=== PATIENT | male | born 1995 | race Caucasian/White ===

== ENCOUNTER 2022-07-08 18:22 | Emergency (ER) | payer OTHER, SELFPAY ==
--- NOTE | ~2022-07-08 | XR_ITS ---
XR chest 2V DATE: 07/08/2022 22:39 INDICATION: Chest pain TECHNIQUE: PA and lateral views COMPARISON: None FINDINGS: Normal heart size. No hilar or mediastinal enlargement. No pulmonary infiltrate or consolid ation, pleural effusion or pulmonary vascular congestion or pneumothorax. Mild thoracic dextroscoliosis. IMPRESSION: No active cardiopulmonary disease Reviewed, dictated and finalized at location A.
[2022-07-08 19:32] VITALS: BP 166/88; PULSE 76; RESP 16; TEMP 36.4; O2SAT 97
--- NOTE | 2022-07-08 22:28 | ED.GENADULT ---
HPI - General Adult General Chief complaint: Unspecified Stated complaint: multiple complaints Time Seen by Provider: 07/08/22 22:00 Source: patient Mode of arrival: ambulatory Limitations: no limitations History of Present Illness HPI narrative: This is a 27-year-old male that presents to the emergency department for multiple complaints. Reports over the last couple of days he has been having chest pains and feeling like he is having difficulty breathing. Reports today he feels like he has a lump in his throat. Denies fever, cough, or difficulty swallowing. Related Data Home Medications Medication Instructions Recorded Confirmed No Home Medications 07/08/22 07/08/22 Allergies Allergy/AdvReac Type Severity Reaction Status Date / Time No Known Allergies Allergy Verified 07/08/22 21:57 Review of Systems Review of Systems: CONSTITUTIONAL: Denies fever CARDIOVASCULAR: Reports chest pain. Denies edema. RESPIRATORY: Reports dyspnea. All systems reviewed & are unremarkable except as noted in HPI and below PMFSH Past Medical History Medical History (Updated 07/09/22 @ 00:19 by Rosalie Arvizu PA-C) No active medical problems Social History Social History (Updated 07/08/22 @ 22:29 by Rosalie Arvizu PA-C) Smoking status: Never smoker Alcohol intake: current Substance use: never Exam Narrative: GENERAL: Well-appearing, well-nourished, and in no acute distress. HEAD: Normocephalic, atraumatic. EYES: EOMI. ENT: Nares clear, no rhinorrhea or epistaxis. Mucous membranes moist. Oropharynx without tonsillar hypertrophy exudate or other lesions. Bilateral TMs pearly malagon non-bulging NECK: Supple. No adenopathy or masses. CHEST: Clear to auscultation. No respiratory distress. HEART: Regular rate and rhythm. No murmur heard. Normal peripheral pulses. EXTREMITIES: Normal range of motion. No edema. SKIN: Warm, dry, no rash. NEURO: No focal deficits. Alert and oriented x3. PSYCH: Normal mood and affect Course Vital Signs Vital signs: Vital Signs Temperature 97.5 F L 07/08/22 19:32 Pulse Rate 76 07/08/22 19:32 Respiratory Rate 16 07/08/22 19:32 Blood Pressure 166/88 H 07/08/22 19:32 Pulse Oximetry 97 07/08/22 19:32 Oxygen Delivery Room Air 07/08/22 19:32 Temperature 97.5 F L 07/08/22 19:32 Pulse Rate 59 L 07/08/22 23:18 Respiratory Rate 12 07/08/22 23:18 Blood Pressure 123/76 07/08/22 23:18 Pulse Oximetry 96 07/08/22 23:18 Oxygen Delivery Room Air 07/08/22 19:32 Medical Decision Making MDM Narrative Medical decision making narrative: Patient presents to the ER with multiple complaints ongoing over the last couple of days. Reporting chest pain, feelings of shortness of breath, and reporting a lump in his throat. His vitals are stable. Lungs are clear on exam. Airway is patent. CBC and metabolic panel without concerning findings. Chest x-ray without acute cardiopulmonary abnormality. EKG without concerning changes and baseline troponin is negative. Patient was updated on case findings. He is stable and felt appropriate for further outpatient evaluation. He was given warnings to return to the ER Vital Signs Vital Signs: Vital Signs Temperature 97.5 F L 07/08/22 19:32 Pulse Rate 76 07/08/22 19:32 Respiratory Rate 16 07/08/22 19:32 Blood Pressure 166/88 H 07/08/22 19:32 Pulse Oximetry 97 07/08/22 19:32 Oxygen Delivery Room Air 07/08/22 19:32 Temperature 97.5 F L 07/08/22 19:32 Pulse Rate 59 L 07/08/22 23:18 Respiratory Rate 12 07/08/22 23:18 Blood Pressure 123/76 07/08/22 23:18 Pulse Oximetry 96 07/08/22 23:18 Oxygen Delivery Room Air 07/08/22 19:32 Lab Data Lab results reviewed: Yes I reviewed the patient's lab results. Result diagrams: 07/08/22 22:47 07/08/22 22:47 Labs: Lab Results 07/08/22 07/08/22 07/08/22 Range/Units 22:47 22:47 22:47 WBC 7.7 (4.5-10.0) K/mm3 RBC
--- NOTE | 2022-07-08 22:49 | PC.NURSE ---
Assumed care of pt
--- NOTE | 2022-07-08 22:56 | ECG_ITS ---
Measurements Intervals [place] Rate: 51 P: 49 [place]: 140 QRS: 58 QRSD: 100 T: 50 QT: 372 QTc: 343 Interpretive Statements SINUS BRADYCARDIA NO PREVIOUS ECG AVAILABLE FOR COMPARISON Electronically Signed On 07-09-2022 16:05:36 CDT by Evert Patel M.D.
[2022-07-08 22:57] LABS: Basophils Percent Auto 0.3 % (0.2-1.2); Eosinophils Absolute Auto 0.3 K/mm3 (0-0.3); Eosinophils Percent Auto 4.2 % (0-4.4); Hematocrit 42.4 % (42.0-52.0); Hemoglobin 14.6 g/dL (14.0-18.0); Immature Granulocyte Absolute 0.02 K/mm3 (0.00-0.031); Immature Granulocyte Percent A 0.3 % (0-0.5); Lymphocytes Absolute Auto 2.23 K/mm3 (0.9-3.2); Lymphocytes Percent Auto 29.2 % (18.3-44.2); Mean Corpuscular HGB Conc 34.4 g/dl (32-36); Mean Corpuscular Hemoglobin 28.5 pg (26-34); Mean Corpuscular Volume 82.8 fl (80-100); Mean Platelet Volume 9.2 fl (7.4-10.4); Monocytes Absolute Auto 0.6 K/mm3 (0.1-0.6); Monocytes Percent Auto 8.2 % (2.6-8.5); Neutrophils Absolute Auto 4.4 K/mm3 (1.3-6.7); Neutrophils Percent Auto 57.8 % (45.5-73.1); Platelet Count Result 257 k/mm3 (150-375); Red Blood Count 5.12 M/mm3 (4.6-6.20); Red Cell Distribution Width 12.9 % (11.5-14.5); White Blood Count 7.7 K/mm3 (4.5-10.0)
[2022-07-08 23:09] LABS: INR 1.1; Prothrombin Time 13.3 Seconds (11.1-14.7)
[2022-07-08 23:10] LABS: Partial Thromboplastin Time 28.3 SECONDS (22.3-36.8)
[2022-07-08 23:11] LABS: Alanine Aminotransferase 70 U/L (6-50); Albumin Level 4.5 g/dL (3.5-5.1); Alkaline Phosphatase 78 U/L (38-126); Anion Gap 10 mmol/L (8-16); Aspartate Amino Transferase 38 U/L (17-59); Bilirubin,Total 0.4 mg/dL (0.2-1.3); Blood Urea Nitrogen 12 mg/dL (9-20); Calcium 8.8 mg/dL (8.4-10.2); Carbon Dioxide 25 mmol/L (22-30); Chloride 104 mmol/L (98-107); Estimated CRCL calculation 118 ml/min; Estimated Glomerular Filt Rate > 60; Glucose 95 mg/dL (65-110); Potassium 3.9 mmol/L (3.4-5.0); Sodium 139 mmol/L (137-145)
[2022-07-08 23:18] VITALS: BP 123/76; PULSE 59; RESP 12; O2SAT 96
[2022-07-08 23:22] LABS: Troponin I < 0.012 ng/mL (0.000-0.034)
[2022-07-09 00:30] VITALS: BP 121/74; PULSE 54; RESP 15; O2SAT 98
== END 2022-07-09 00:31 | disposition home or self-care (01) ==
PROVIDERS: Physician Assistant; Emergency Provider Emergency Medicine
DX: R09.89 Other specified symptoms and signs involving the circulatory and respiratory systems (principal); R00.1 Bradycardia, unspecified
CPT/HCPCS: 36415; 71046; 80053; 84484; 85025; 85610; 85730; 93005; 99284

== ENCOUNTER 2022-12-13 16:56 | Emergency (ER) | payer OTHER, SELFPAY ==
--- NOTE | 2022-12-13 16:59 | ED.DENTAL ---
HPI - Dental/Oral General Chief complaint: Dental/Oral Stated complaint: toothache Time Seen by Provider: 12/13/22 16:58 Source: patient Mode of arrival: ambulatory Limitations: no limitations History of Present Illness HPI Narrative: Mr. Darling is a 27-year-old male patient presenting to the clinic today with complaints of left-sided upper and lower dental pain x2 weeks. He reports that he has had this pain off and on for years however over the 2 weeks that has gotten worse. He has made appointment with his dentist but he is not able to be seen until January 09. He denies any fever or chills. Related Data Home Medications Medication Instructions Recorded Confirmed bupropion HCl 150 mg 24 hr tablet, 150 mg PO DAILY 12/13/22 12/13/22 extended release Allergies Allergy/AdvReac Type Severity Reaction Status Date / Time No Known Allergies Allergy Verified 12/13/22 17:11 Review of Systems Review of Systems: Pertinent positives per HPI. Patient denies any fever, chills, rash, headache, visual changes, dizziness, cough, runny nose, sore throat, shortness of breath, chest pain, palpitations, nausea, vomiting, diarrhea, constipation, abdominal pain, or any urinary issues. [facility] Past Medical History Medical History No active medical problems Social History Social History Smoking status: Never smoker Alcohol intake: current Substance use: never Comments At the time of my signature, I reviewed and agree with the nursing past medical, surgical, social, and family history. There is no relevant family history pertinent to the patient complaint. Exam Narrative: General: Well-developed, well nourished, in no apparent distress Head: Normocephalic, atraumatic Eyes: Pupils equally round and reactive to light bilaterally, EOM intact, sclera and conjunctive clear, no discharge, lids normal Ears: TMs intact and clear, ear canals clear, no drainage, grossly hearing normal. Nose: Nares patent, no discharge, no inflammation, no sinus tenderness. Mouth: Oropharynx without lesions or masses, poor dentition, MMM. Tenderness to palpation to the posterior left upper and lower molars with redness and swelling of the gingiva Neck: Supple, trachea midline, no enlargement of anterior or posterior cervical nodes, no thyroid masses or goiter palpable. Cardio: Regular rate and rhythm, s1 and s2 normal, no murmur appreciated. Resp: Clear to auscultation bilaterally anteriorly and posteriorly, no rhonchi, rales, wheezing or rubs Course Course Emergency Course: Portions of this record may have been created with voice recognition software. Level of Care: Express Care Visit Vital Signs Vital signs: Vital Signs Temperature 36.3 C L 12/13/22 17:07 Pulse Rate 90 12/13/22 17:07 Respiratory Rate 20 12/13/22 17:07 Blood Pressure 136/85 12/13/22 17:07 Pulse Oximetry 99 12/13/22 17:07 Oxygen Delivery Room Air 12/13/22 17:07 Temperature 36.3 C L 12/13/22 17:07 Pulse Rate 90 12/13/22 17:07 Respiratory Rate 20 12/13/22 17:07 Blood Pressure 136/85 12/13/22 17:07 Pulse Oximetry 99 12/13/22 17:07 Oxygen Delivery Room Air 12/13/22 17:07 Vital signs reviewed MDM - Dental/Oral MDM Narrative Medical decision making narrative: At the time of visit patient is resting comfortably on exam table. I suspect the patient has a dental infection. Will send a prescription for amoxicillin 875 twice daily times 10 days. Supportive measures were discussed with the patient he voiced understanding discharge instructions and agrees to treatment plan Differential Diagnosis Differential diagnosis: Likely gingival abscess, dental caries, toothache and dental abscess Discharge Plan Discharge Clinical Impression: Dental infection Patient Disposition: Home, Self-Care Condition: Stab
[2022-12-13 17:07] VITALS: BP 136/85; PULSE 90; RESP 20; TEMP 36.3; O2SAT 99
== END 2022-12-13 17:15 | disposition home or self-care (01) ==
PROVIDERS: Emergency Provider Nurse Practitioner Family; PCP Physician Assistant
DX: K04.7 Periapical abscess without sinus (principal)
CPT/HCPCS: 99213; G0463

== ENCOUNTER 2023-07-16 18:38 | Emergency (ER) | payer OTHER, SELFPAY ==
--- NOTE | ~2023-07-16 | XR_ITS ---
EXAMINATION: XR chest 2V Exam Date/Time: 07/16/2023 19:00 CDT HISTORY: left MID/LATERAL rib pain X 1 MONTH Comparison: 07/08/2022. RESULT: Lines, tubes, and devices: None. Lungs and pleura: Clear. Cardiomediastinal silhouette: Stable. Other: No acute osseous or upper abdominal finding. IMPRESSION: No acute cardiopulmonary process. Reviewed, dictated and finalized at location K.
[2023-07-16 18:49] VITALS: BP 130/83; PULSE 75; RESP 17; TEMP 36.6; O2SAT 99
--- NOTE | 2023-07-16 18:51 | ECG_ITS ---
Measurements Intervals [place] Rate: 75 P: 63 [place]: 153 QRS: 66 QRSD: 98 T: 54 QT: 342 QTc: 383 Interpretive Statements SINUS RHYTHM WITH SINUS ARRHYTHMIA NORMAL ECG COMPARED TO ECG 07/08/2022 22:42:06 SINUS RHYTHM NOW PRESENT SINUS ARRHYTHMIA NOW PRESENT Electronically Signed On 07-16-2023 19:17:57 CDT by Amadou Taylor D.O.
--- NOTE | 2023-07-16 20:19 | ED.GENADULT ---
HPI - General Adult General Chief complaint: Unspecified Stated complaint: L RIB PAIN Time Seen by Provider: 07/16/23 19:54 History of Present Illness HPI narrative: Patient is a 28-year-old male presenting with left-sided rib pain. Patient states that several weeks ago he fell and his elbow went straight into his ribs. States that he had pain at that time which has been coming and going. States that the pain has been worse over the last several days so he wanted to get checked out. States that he has been taking ibuprofen intermittently which does improve the pain. 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 No shortness of breath, palpitations, leg swelling. No prior blood clots. No further complaints. Related Data Home Medications Medication Instructions Recorded Confirmed bupropion HCl 150 mg 24 hr tablet, 150 mg PO DAILY 12/13/22 12/13/22 extended release Allergies Allergy/AdvReac Type Severity Reaction Status Date / Time No Known Allergies Allergy Verified 12/13/22 17:11 Review of Systems Review of Systems: All systems reviewed & are unremarkable except as noted in HPI and below PMFSH Past Medical History Medical History No active medical problems Social History Social History Smoking status: Never smoker Alcohol intake: current Substance use: never Exam Narrative: GENERAL: Well-appearing, well-nourished, and in no acute distress. HEAD: Normocephalic, atraumatic. EYES: PERRLA and EOMI. ENT: Mucous membranes moist. NECK: Supple. CHEST: Clear to auscultation. No respiratory distress. tenderness over left lower ribs HEART: Regular rate and rhythm ABDOMEN: Soft, nontender, nondistended EXTREMITIES: No edema. SKIN: Warm, dry, no rash. NEURO: Alert and oriented x3. PSYCH: Normal mood and affect. Course Vital Signs Vital signs: Vital Signs Temperature 97.8 F 07/16/23 18:49 Pulse Rate 75 07/16/23 18:49 Respiratory Rate 17 07/16/23 18:49 Blood Pressure 130/83 07/16/23 18:49 Pulse Oximetry 99 07/16/23 18:49 Oxygen Delivery Room Air 07/16/23 18:49 Temperature 97.8 F 07/16/23 18:49 Pulse Rate 75 07/16/23 18:49 Respiratory Rate 17 07/16/23 18:49 Blood Pressure 130/83 07/16/23 18:49 Pulse Oximetry 99 07/16/23 18:49 Oxygen Delivery Room Air 07/16/23 18:49 Medical Decision Making MDM Narrative Medical decision making narrative: 28-year-old male presenting with left-sided rib pain after a fall several weeks ago. Vitals are stable. Exam remarkable for the above. PERC negative. No abdominal tenderness. EKG per my interpretation shows normal sinus rhythm with a sinus arrhythmia, no acute ischemic changes. Chest x-ray without acute abnormalities. No rib fractures. Feel the patient is safe for outpatient management, advised that he continue using ibuprofen and Tylenol for pain. Advised that he follow-up closely with primary care. Appropriate return precautions given. Discharged in stable condition. Differential Diagnosis Differential Diagnosis: Rib fractures, musculoskeletal pain, ecchymoses Medical Records Medical records reviewed: Yes I reviewed the external patient's medical records. Vital Signs Vital Signs: Vital Signs Temperature 97.8 F 07/16/23 18:49 Pulse Rate 75 07/16/23 18:49 Respiratory Rate 17 07/16/23 18:49 Blood Pressure 130/83 07/16/23 18:49 Pulse Oximetry 99 07/16/23 18:49 Oxygen Delivery Room Air 07/16/23 18:49 Temperature 97.8 F 07/16/23 18:49 Pulse Rate 75 07/16/23 18:49 Respiratory Rate 17 07/16/23 18:49 Blood Pressure 130/83 07/16/23 18:49 Pulse Oximetry 99 07/16/23 18:49 Oxygen Delivery Room Air 07/16/23 18:49 Imaging Data Radiologist's impression: ITS Impressions Chest X-Ray
== END 2023-07-16 20:43 | disposition home or self-care (01) ==
PROVIDERS: Emergency Provider Emergency Medicine
DX: R07.81 Pleurodynia (principal); W19.XXXA Unspecified fall, initial encounter
CPT/HCPCS: 71046; 93005; 99283

== ENCOUNTER 2023-08-13 17:49 | Emergency (ER) | payer OTHER, SELFPAY ==
[2023-08-13 18:00] VITALS: BP 147/76; PULSE 77; RESP 16; TEMP 36.5; O2SAT 98
--- NOTE | 2023-08-13 18:17 | ED.URI ---
HPI - URI/Sore Throat General Chief Complaint: Nausea/Vomiting/Diarrhea Stated Complaint: nausea Time Seen by Provider: 08/13/23 17:51 Source: patient Mode of arrival: ambulatory Limitations: no limitations History of Present Illness HPI Narrative: Patient is a 28-year-old male that presents with nausea, dizziness, decreased appetite since yesterday. Patient states yesterday he also had light sensitivity and migraines that he has frequently. Patient states he has not brought up daily headaches with PCP. States he has not taken anything for symptoms. Denies any change in vision. Denies any vomiting, abdominal pain or diarrhea. Does report mild congestion and drainage. Also reports feeling fever rash even though he is working outside and is very cold. Related Data Home Medications Medication Instructions Recorded Confirmed No Home Medications 08/13/23 08/13/23 Allergies Allergy/AdvReac Type Severity Reaction Status Date / Time No Known Allergies Allergy Verified 08/13/23 18:55 Review of Systems Review of Systems: All systems reviewed & are unremarkable except as noted in HPI and below Constitutional: Constitutional: Denies body ache(s), Denies chills, Denies fatigue, Reports fever(s), Reports headache(s), Denies malaise and Denies weakness Eyes: Eyes: Denies blurry vision, Denies itchy eyes and Denies loss of vision ENT: Denies otalgia, Denies headache(s), Reports nasal congestion, Denies sinus pain and Denies sore throat Cardiovascular: Cardiovascular: Denies chest pain, Denies irregular heart rhythm and Denies dyspnea Respiratory: Respiratory: Denies cough and Denies dyspnea Gastrointestinal: Gastrointestinal: Denies abdominal pain, Denies diarrhea, Denies nausea and Denies vomiting Musculoskeletal: Musculoskeletal: Denies back pain, Denies myalgias and Denies arthralgias Integumentary/Breasts: Skin/Breast: Denies pruritus and Denies rash Neurologic: Reports dizziness, Denies headache(s), Denies loss of vision and Denies weakness Psychiatric: Psychiatric: Reports no additional psychiatric complaints Endocrine: Endocrine: Denies fatigue Allergic/Immunologic: Allergic/Immunologic: Denies itchy eyes PMFSH Past Medical History Medical History No active medical problems Social History Social History Smoking status: Never smoker Alcohol intake: current Substance use: never Comments At time of signature, agree with nursing past medical, surgical, social and family history. There is no relevant family history pertinent to the presenting complaint. Exam Const: General: cooperative, healthy appearing, comfortable, no acute distress and well nourished Nutritional Appearance: well nourished Orientation/consciousness: patient oriented x3 Limitations: no limitations HENMT: Head: normal to inspection, normocephalic and atraumatic Ears: hearing grossly normal bilaterally, external ears normal, TM's normal bilaterally, EAC's normal and no periauricular adenopathy Face/Nose/Sinus: Normal external nose present, Abnormal mucous membranes and turbinates present erythematous bilateral and diffuse, normal facial exam, sinuses nontender and face symmetric Face and sinus: normal facial exam, sinuses nontender and face symmetric Mouth: Yes Normal oral and palatal mucosa present, Yes lip normal, Yes tongue normal, Yes Normal salivary glands and ducts present, Yes oropharynx normal and Yes moist mucous membranes Teeth and gingiva: dentition normal Throat: posterior oropharynx normal, tonsils normal and uvula midline Eyes: General: appearance normal, both eyes and all related structures Alignment and Position: alignment normal and position normal Periorbital: periorbital findings normal Eyelids: eyelids normal Pupils: Equal, round and reactive pupils present Neck: Neck: normal visual inspection, fu
== END 2023-08-13 18:38 | disposition short-term general hospital (02) ==
PROVIDERS: Emergency Provider Nurse Practitioner Family; PCP Nurse Practitioner Family
DX: R42 Dizziness and giddiness (principal); R29.90 Unspecified symptoms and signs involving the nervous system; Z20.822 Contact with and (suspected) exposure to COVID-19
CPT/HCPCS: 87081; 87426; 87804; 87880; 99213; C9803; G0463

== ENCOUNTER 2023-08-13 18:49 | Emergency (ER) | payer OTHER, SELFPAY ==
--- NOTE | ~2023-08-13 | CT_ITS ---
EXAMINATION: CT brain wo con DATE: 08/13/2023 23:22 INDICATION: headache . TECHNIQUE: Computed tomography (CT) of the head was performed without intravenous contrast. The mA wa s adjusted according to patient size. Iterative reconstruction technique was employed. The dose-lengt h product was 605.33 mGy-cm. COMPARISON: None. FINDINGS: No acute intracranial hemorrhage or extra-axial fluid collection. No hydrocephalus, mass, or herniation. No acute ischemic infarct. Unremarkable dural venous sinus attenuation. No acute osseous abnormality. The aerated spaces are clear. IMPRESSION: No acute intracranial process. Reviewed, dictated and finalized at location K. OCHEMIST
[2023-08-13 18:51] VITALS: BP 154/96; PULSE 68; RESP 17; TEMP 36.5; O2SAT 99
[2023-08-13] MEDS: KETOROLAC 30 MG/ML VIAL (*BKC) IV PUSH (23:35)
[2023-08-13] MEDS: diphenhydrAMINE HCl INJ 50 MG/ML VIAL IV PUSH (23:35)
[2023-08-13] MEDS: PROCHLORPERAZINE EDISYLATE 10 MG/2 ML VIAL IV PUSH (23:35)
[2023-08-13] MEDS: SODIUM CHLORIDE 0.9% IV 1,000 ML 999 ML IV CONT (23:36)
[2023-08-13 23:38] LABS: Basophils Percent Auto 0.3 % (0.2-1.2); Eosinophils Absolute Auto 0.5 K/mm3 (0-0.3); Eosinophils Percent Auto 5.8 % (0-4.4); Hematocrit 43.9 % (42.0-52.0); Hemoglobin 14.6 g/dL (14.0-18.0); Immature Granulocyte Absolute 0.02 K/mm3 (0.00-0.031); Immature Granulocyte Percent A 0.2 % (0-0.5); Mean Corpuscular HGB Conc 33.3 g/dl (32-36); Mean Corpuscular Hemoglobin 27.5 pg (26-34); Mean Corpuscular Volume 82.7 fl (80-100); Mean Platelet Volume 8.8 fl (7.4-10.4); Monocytes Absolute Auto 0.7 K/mm3 (0.1-0.6); Monocytes Percent Auto 7.8 % (2.6-8.5); Neutrophils Absolute Auto 5.4 K/mm3 (1.3-6.7); Neutrophils Percent Auto 57.9 % (45.5-73.1); Platelet Count Result 268 k/mm3 (150-375); Red Blood Count 5.31 M/mm3 (4.6-6.20); Red Cell Distribution Width 13.1 % (11.5-14.5); White Blood Count 9.3 K/mm3 (4.5-10.0)
[2023-08-13 23:49] LABS: Alanine Aminotransferase 65 U/L (6-50); Albumin Level 4.4 g/dL (3.5-5.1); Alkaline Phosphatase 88 U/L (38-126); Anion Gap 9 mmol/L (8-16); Aspartate Amino Transferase 41 U/L (17-59); Bilirubin,Total 0.8 mg/dL (0.2-1.3); Blood Urea Nitrogen 10 mg/dL (9-20); Carbon Dioxide 27 mmol/L (22-30); Chloride 104 mmol/L (98-107); Estimated CRCL calculation 131 ml/min; Estimated Glomerular Filt Rate > 60; Glucose 92 mg/dL (65-110); Potassium 3.9 mmol/L (3.4-5.0); Sodium 140 mmol/L (137-145)
[2023-08-14 00:14] LABS: Influenza A QL RT-PCR Negative (Negative); Influenza B QL RT-PCR Negative (Negative); RSV RNA, RT-PCR Negative (Negative); SARS-CoV-2 RNA PCR Negative (Negative)
--- NOTE | 2023-08-14 00:31 | ED.GENADULT ---
HPI - General Adult General Chief complaint: Headache Stated complaint: Headache Time Seen by Provider: 08/13/23 22:58 History of Present Illness HPI narrative: patient is a 28-year-old gentleman who presents emergency department with chief complaint of headache patient states that for last several years has been having intermittent headaches and reports that he gets photophobia and feels as though the room is spinning when these episodes happen. The patient states having a little more frequent he reports the last several days the pain worse. The patient reports no trauma reports that he has no focal weakness and denies confusion. Related Data Home Medications Medication Instructions Recorded Confirmed No Home Medications 08/13/23 08/13/23 Allergies Allergy/AdvReac Type Severity Reaction Status Date / Time No Known Allergies Allergy Verified 08/13/23 18:55 Review of Systems Review of Systems: A 10 system review of systems was completed on the patient and is negative except for what is stated in the HPI. Nursing and ancillary documentation was reviewed. PMFSH Past Medical History Medical History No active medical problems Social History Social History Smoking status: Never smoker Alcohol intake: current Substance use: never Exam Narrative: GENERAL: Well-appearing, well-nourished, and in no acute distress. HEAD: Normocephalic, atraumatic. EYES: PERRLA and EOMI. ENT: Nares clear, no rhinorrhea or epistaxis. Mucous membranes moist. NECK: Supple. CHEST: Clear to auscultation. No respiratory distress. HEART: Regular rate and rhythm. No murmur heard. Normal peripheral pulses. ABDOMEN: Soft, nontender, nondistended, normal active bowel sounds. EXTREMITIES: Normal range of motion. No edema. SKIN: Warm, dry, no rash. NEURO: No focal deficits. Alert and oriented x3. PSYCH: Normal mood and affect. Course Vital Signs Vital signs: Vital Signs Temperature 36.5 C 08/13/23 18:51 Pulse Rate 68 08/13/23 18:51 Respiratory Rate 17 08/13/23 18:51 Blood Pressure 154/96 H 08/13/23 18:51 Pulse Oximetry 99 08/13/23 18:51 Oxygen Delivery Room Air 08/13/23 18:51 Temperature 36.5 C 08/13/23 18:51 Pulse Rate 68 08/13/23 18:51 Respiratory Rate 17 08/13/23 18:51 Blood Pressure 154/96 H 08/13/23 18:51 Pulse Oximetry 99 08/13/23 18:51 Oxygen Delivery Room Air 08/13/23 18:51 Medical Decision Making MDM Narrative Medical decision making narrative: Septal diagnosis includes intracranial hemorrhage, intracranial mass, migraine, tension headache, electrolyte abnormality, viral syndrome patient was negative for COVID CT head showed no acute abnormalities patient was treated with a classic migraine cocktail and is feeling much better at this time would like to go home. Given the patient has no focal neurological deficits and shows no signs of altered mental status patient will be discharged home to follow-up with his primary care provider Vital Signs Vital Signs: Vital Signs Temperature 36.5 C 08/13/23 18:51 Pulse Rate 68 08/13/23 18:51 Respiratory Rate 17 08/13/23 18:51 Blood Pressure 154/96 H 08/13/23 18:51 Pulse Oximetry 99 08/13/23 18:51 Oxygen Delivery Room Air 08/13/23 18:51 Temperature 36.5 C 08/13/23 18:51 Pulse Rate 68 08/13/23 18:51 Respiratory Rate 17 08/13/23 18:51 Blood Pressure 154/96 H 08/13/23 18:51 Pulse Oximetry 99 08/13/23 18:51 Oxygen Delivery Room Air 08/13/23 18:51 Lab Data 08/13/23 23:33 08/13/23 23:33 Labs: Lab Results 08/13/23 Range/Units 23:33 WBC 9.3 (4.5-10.0) K/mm3 RBC 5.31 (4.6-6.20) M/mm3 Hgb 14.6 (14.0-18.0) g/dL Hct 43.9 (42.0-52.0) % MCV 82.7 (80-100) fl MCH 27.5 (26-34) pg MCHC 33
[2023-08-14 00:51] VITALS: BP 136/77; PULSE 86; RESP 15; O2SAT 99
== END 2023-08-14 00:52 | disposition home or self-care (01) ==
PROVIDERS: Emergency Provider Emergency Medicine; PCP Nurse Practitioner Family
DX: R51.9 Headache, unspecified (principal); Z20.822 Contact with and (suspected) exposure to COVID-19
CPT/HCPCS: 36415; 70450; 80053; 85025; 87081; 87426; 87637; 87804; 87880; 96361; 96374; 96375; 99284; C9803; J0780; J1200; J1885; J7030

== ENCOUNTER 2024-05-17 13:53 | Emergency (ER) | payer OTHER, SELFPAY ==
[2024-05-17 14:04] VITALS: BP 116/57; PULSE 92; RESP 18; TEMP 38.3; O2SAT 100
--- NOTE | 2024-05-17 14:10 | ED.URI ---
HPI - URI/Sore Throat General Chief Complaint: Upper Respiratory Infection Stated Complaint: Fever/ Body Ache Source: patient and RN notes reviewed Mode of arrival: ambulatory Limitations: no limitations History of Present Illness HPI Narrative: 29-year-old male presented for complaint of sore throat, headache, body aches, mild nasal drainage cough, fever/chills. Onset 9:00 p.m. yesterday. Tested negative for COVID an hour and a half after symptom onset. Denies sob, wheezing, n/v/d. Family has had similar symptoms. Took Tylenol Cold and Sinus med. elicited complaint: cough Related Data Home Medications Medication Instructions Recorded Confirmed No Home Medications 08/13/23 05/17/24 Allergies Allergy/AdvReac Type Severity Reaction Status Date / Time No Known Allergies Allergy Verified 05/17/24 14:01 Review of Systems Review of Systems: CONSTITUTIONAL: Endorses malaise, chills, sweats, fever EYES: Denies visual changes, redness, or discharge ENT: Reports rhinorrhea, congestion, sore throat CARDIOVASCULAR: Denies chest pain, palpitations, edema RESPIRATORY: Reports cough, Denies dyspnea GASTROINTESTINAL: reports nausea Denies abdominal pain, vomiting, diarrhea SKIN: Denies rash or itching MUSCULOSKELETAL: Endorses myalgia PMFSH Past Medical History Medical History No active medical problems Social History Social History Smoking status: Never smoker Alcohol intake: current Substance use: never Exam Narrative: GENERAL: Mildly Ill-appearing, nontoxic no acute distress. EYES: PERRLA, conjunctivae clear ENT: Mucous membranes moist. TM pearly malagon with dull light reflex bilaterally; no tragal tenderness. Oropharynx mildly erythematous without lesions or exudate, no drooling, no hoarseness, no trismus, uvula midline. NECK: Supple. No lymphadenopathy CHEST: Clear to auscultation, breath sounds equal. No wheezing, rhonchi, rales, or stridor. No respiratory distress, speaks in full sentences. HEART: Regular rate and rhythm. No murmur heard. SKIN: Warm, dry, no rash. NEURO: Alert and oriented x3. PSYCH: Normal mood and affect Course Course Emergency Course: Patient is aware of diagnosis, understands and agrees to treatment plan. Anticipatory guidance given. Patient agrees to follow-up as directed and is aware of reasons to seek care at the emergency department. Portions of this record may have been created with voice recognition software Level of Care: Express Care Visit Vital Signs Vital signs: Vital Signs Temperature 101 F H 05/17/24 14:04 Pulse Rate 92 05/17/24 14:04 Respiratory Rate 18 05/17/24 14:04 Blood Pressure 116/57 L 05/17/24 14:04 Pulse Oximetry 100 05/17/24 14:04 Oxygen Delivery Room Air 05/17/24 14:04 Temperature 101 F H 05/17/24 14:04 Pulse Rate 92 05/17/24 14:04 Respiratory Rate 18 05/17/24 14:04 Blood Pressure 116/57 L 05/17/24 14:04 Pulse Oximetry 100 05/17/24 14:04 Oxygen Delivery Room Air 05/17/24 14:04 reviewed MDM - URI/Sore Throat MDM Narrative Medical decision making narrative: Positive influenza. Declined Tamiflu. Discussed physical exam findings. Advised supportive measures and signs/symptoms to go to the ER. Pt is appropriate for outpt treatment and f/u. Differential Diagnosis Differential diagnosis: Likely upper respiratory infection, sinusitis and viral infection Discharge Plan Discharge Clinical Impression: Influenza Patient Disposition: Home, Self-Care Condition: Stable Instructions: Influenza (ED) Additional Instructions: Influenza positive You should avoid crowds until you are fever free for 24 hours without the use of fever reducing medications, or the symptoms are improved Rest. Drink plenty of fluids. Tylenol and ibuprofen every 8 hours as needed for pain/fever Recommen
[2024-05-17 14:22] LABS: EDINFLUASCREEN Positive; EDINFLUBSCREEN Negative
== END 2024-05-17 14:24 | disposition home or self-care (01) ==
PROVIDERS: Emergency Provider Nurse Practitioner Family; PCP Physician Assistant
DX: J10.1 Influenza due to other identified influenza virus with other respiratory manifestations (principal); Z20.822 Contact with and (suspected) exposure to COVID-19
CPT/HCPCS: 87426; 87804; 99213; G0463

== ENCOUNTER 2024-05-20 23:34 | Emergency (ER) | payer OTHER, SELFPAY ==
--- NOTE | ~2024-05-20 | CT_ITS ---
Non-contrast Head CT History: Mental status change COMPARISON: 2923 Technique: Axial non-contrast imaging of the brain was performed. Dose reduction technique was used on this scan by utilizing automated exposure control and iterative reconstruction technique. The dose -length product (DLP) was 605.33 mGy-cm. Findings: There is no evidence of intracranial hemorrhage, mass lesion, or acute infarct. Brain par enchyma appears normal. The ventricles and subarachnoid spaces are normal in size. The calvarium ap pears normal. The visualized paranasal sinuses and mastoid air cells are clear. Impression: No significant abnormality seen. Reviewed, dictated and finalized at location . Impression: No significant abnormality seen.
--- NOTE | ~2024-05-20 | XR_ITS ---
Portable chest x-ray Comparison: 07/16/2023 Clinical History: Seizure Findings: Lungs are clear, without focal consolidation or pleural effusion. Cardiomediastinal silho uette is stable. Bones and soft tissues are unremarkable. Impression: Normal chest. Reviewed, dictated and finalized at location . Impression: Normal chest.
--- NOTE | ~2024-05-20 | CT_ITS ---
CT Facial Bones and Cervical Spine Clinical Indication: Seizure, status post fall Technique: Contiguous axial scans were obtained through the facial bones and cervical spine followed by coronal and sagittal reconstructions. Dose reduction technique was used on this scan by utilizing automated exposure control and iterative reconstruction technique. The dose-length product (DLP) was 455.80 mGy-cm. Findings: CT facial bones: No fractures are identified. The visualized paranasal sinuses are clear. Intraorbita l soft tissues appear normal. CT cervical spine: No fractures or subluxation. Unremarkable visualized bony structures. The interv ertebral disc spaces are preserved. No prevertebral soft tissue swelling. Impression: No fracture is seen in the facial bones. No fracture or subluxation of the cervical spine. Reviewed, dictated and finalized at location . Impression: No fracture is seen in the facial bones. No fracture or subluxation of the cervical spine.
--- NOTE | 2024-05-20 23:39 | ECG_ITS ---
Test Date: 2024-05-20 23:42:39 Measurements Intervals [place] Rate: 63 P: 50 RI: 163 QRS: 59 QRSD: 98 T: 38 QT: 378 QTc: 388 Interpretive Statements SINUS RHYTHM POSSIBLE LEFT ATRIAL ENLARGEMENT INCOMPLETE RIGHT BUNDLE BRANCH BLOCK BORDERLINE ECG No previous ECG available for comparison Electronically Signed On 05-21-2024 06:42:55 CDT by Amadou Taylor D.O.
[2024-05-20 23:42] VITALS: BP 114/77; PULSE 68; RESP 18; TEMP 37.1; O2SAT 97
[2024-05-20 23:45] VITALS: O2SAT 99
[2024-05-20 23:53] VITALS: PULSE 71
[2024-05-20 23:54] VITALS: BP 114/77; PULSE 70; RESP 12; TEMP 37.1; O2SAT 99
[2024-05-20 23:54] LABS: Basophils Percent Auto 0.9 % (0.2-1.2); Eosinophils Percent Auto 1.4 % (0-4.4); Hematocrit 39.2 % (42.0-52.0); Hemoglobin 13.2 g/dL (14.0-18.0); Immature Granulocyte Absolute 0.01 K/mm3 (0.00-0.031); Immature Granulocyte Percent A 0.5 % (0-0.5); Lymphocytes Absolute Auto 0.76 K/mm3 (0.9-3.2); Lymphocytes Percent Auto 35.5 % (18.3-44.2); Mean Corpuscular HGB Conc 33.7 g/dl (32-36); Mean Corpuscular Hemoglobin 27.8 pg (26-34); Mean Corpuscular Volume 82.7 fl (80-100); Monocytes Absolute Auto 0.3 K/mm3 (0.1-0.6); Neutrophils Percent Auto 46.7 % (45.5-73.1); Platelet Count Result 144 k/mm3 (150-375); Red Blood Count 4.74 M/mm3 (4.6-6.20); Red Cell Distribution Width 12.9 % (11.5-14.5); White Blood Count 2.1 K/mm3 (4.5-10.0)
[2024-05-21 00:04] LABS: Alanine Aminotransferase 70 U/L (6-50); Albumin Level 3.8 g/dL (3.5-5.1); Alkaline Phosphatase 71 U/L (38-126); Anion Gap 7 mmol/L (4-12); Aspartate Amino Transferase 62 U/L (17-59); Bilirubin,Total 0.3 mg/dL (0.2-1.3); Blood Urea Nitrogen 10 mg/dL (9-20); Calcium 8.2 mg/dL (8.4-10.2); Carbon Dioxide 29 mmol/L (22-30); Chloride 102 mmol/L (98-107); Estimated CRCL calculation 130 ml/min; Estimated Glomerular Filt Rate > 60; Glucose 86 mg/dL (65-110); Potassium 3.5 mmol/L (3.4-5.0); Sodium 138 mmol/L (137-145)
[2024-05-21 01:03] LABS: CRP 2.2 mg/dL (<1.0)
[2024-05-21 01:06] LABS: Prothrombin Time 13.8 Seconds (11.1-14.7)
[2024-05-21 01:07] LABS: Partial Thromboplastin Time 29.8 Seconds (22.3-36.8)
--- NOTE | 2024-05-21 01:11 | ED.SEIZURE ---
HPI - Seizure General Chief Complaint: Seizure Stated Complaint: Seizures Time Seen by Provider: 05/20/24 23:40 Source: patient and family Mode of arrival: EMS Limitations: altered mental status History of Present Illness HPI Narrative: Pt is a 29-year-old male patient who presents to the ER with altered mental status after having a witnessed seizure at home. 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 Pt has not had a seizure since he was [id number]. His significant other reports he occasionally drinks alcohol and smokes marijuana, but not routinely. Pt was diagnosed with influenza A approximately days ago but he's been afebrile today. His significant other reports pt hit his head when he fell during his seizure earlier. MD complaint: seizure, possible seizure and syncope Description of Episode: loss of consciousness, tonic-clonic movement and post-event confusion Duration of episode: 30 -: second(s) Witnessed: Yes - by Bystander Place: home Possible Precipitating Event: stress Related Data Home Medications Medication Instructions Recorded Confirmed No Home Medications 08/13/23 05/17/24 Allergies Allergy/AdvReac Type Severity Reaction Status Date / Time diphenhydramine Allergy Hives Verified 05/20/24 23:53 [From Benadryl] Review of Systems Review of Systems: All systems reviewed & are unremarkable except as noted in HPI and below PMFSH Past Medical History Medical History No active medical problems Social History Social History Smoking status: Never smoker Alcohol intake: current Substance use: never Exam Narrative: GENERAL: Well appearing, well-nourished, non-toxic, in no acute distress. HEAD: Normocephalic, atraumatic. NECK: Supple. No adenopathy, no masses. RESPIRATORY: Airway patent, respirations nonlabored. Clear to auscultation bilaterally, no rales, rhonchi, wheezing. CARDIOVASCULAR: Regular rate and rhythm without murmurs, rubs, or gallops. Peripheral pulses 2+ and equal bilaterally. ABDOMINAL: Soft, nontender, nondistended, no hepatosplenomegaly. Normoactive BS. MUSCULOSKELETAL: Moves all extremities. Strength/ROM intact without gross deformities. SKIN: Warm, dry, normal color. No rashes. NEURO: Pt nods to yes/no questions, but does not speak with [employer]. Cranial nerves II-XII grossly intact. Steady gait. No ataxic movements. PSYCHIATRIC: Flat affect. Minimal interaction with [employer]. Course Vital Signs Vital signs: Vital Signs Temperature 37.1 C 05/20/24 23:42 Pulse Rate 68 05/20/24 23:42 Respiratory Rate 18 05/20/24 23:42 Blood Pressure 114/77 05/20/24 23:42 Pulse Oximetry 97 05/20/24 23:42 Oxygen Delivery Room Air 05/20/24 23:42 Temperature 37.1 C 05/20/24 23:54 Pulse Rate 80 05/21/24 02:00 Respiratory Rate 18 05/21/24 02:00 Blood Pressure 124/78 05/21/24 02:00 Pulse Oximetry 97 05/21/24 02:00 Oxygen Delivery Room Air 05/20/24 23:45 MDM - Seizure MDM Narrative Medical decision making narrative: Pt is a 29-year-old male patient who presents to the ER with altered mental status after having a witnessed seizure at home. 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 Pt has not had a seizure since he was [id number]. His significant other reports he occasionally drinks alcohol and smokes marijuana, but not routinely. Pt was diagnosed with influenza A approximately days ago but he's been afebrile today. His significant other reports pt hit his head when he fell during his seizure earlier. Pt's WBC is low, which may be due to his recent influenza diagnosis. Pt's other blood work was WNL. His UDS was positive for cannabinoids. 1L NS IV bolus was adm
[2024-05-21 01:14] LABS: Troponin I < 0.012 ng/mL (0.000-0.034)
--- NOTE | 2024-05-21 01:21 | PC.NURSE ---
This RN asked pt for urine sample. Pt stated he is unable to provide one. This RN advised pt that we will have to use a straight cath to get sample if he can not provide one soon.
[2024-05-21 01:59] LABS: Lactic Acid Reflex 0.9 mmol/L (0.7-2.0)
[2024-05-21 02:00] VITALS: BP 124/78; PULSE 80; RESP 18; O2SAT 97
[2024-05-21 02:38] LABS: Add Urine Microscopic? YES; Appearance Urine Clear (Clear); Bacteria Urine None Seen /hpf; Bilirubin Urine Negative (Negative); Blood Urine Negative (Negative); Color Urine Yellow (Yellow); Glucose Urine UA Negative (Negative); Ketones Urine 2+ mg/dL (Negative); Leukocyte Esterase Ur Negative LEU/UL (Negative); Nitrate Urine Negative (Negative); Protein Urine Trace mg/dL (Negative); RBC Urine 0-2 /hpf (0-2); Specific Grav Ur 1.022 (1.001-1.035); Squamous Epithelial Cell Urine None Seen /hpf (Few); WBC Urine 0-5 /hpf (0-3); pH Urine 6.5 (5.0-9.0)
[2024-05-21 02:50] LABS: Amphetamine Screen Urine Negative (Negative); Barbiturate Screen Urine Negative (Negative); Benzodiazepines Screen Urine Negative (Negative); Cannabinoid Screen Urine Positive (Negative); Cocaine Screen Urine Negative (Negative); Methadone Screen Urine Negative (Negative); Opiate Screen Urine Negative (Negative); Phencyclidine Screen Urine Negative (Negative)
[2024-05-21 05:50] VITALS: BP 128/80; PULSE 61; RESP 17; O2SAT 95
== END 2024-05-21 04:30 | disposition home or self-care (01) ==
PROVIDERS: Student in an Organized Health Care Education/Training Program; Emergency Provider Registered Nurse; PCP Physician Assistant
DX: R56.9 Unspecified convulsions (principal); F12.90 Cannabis use, unspecified, uncomplicated
CPT/HCPCS: 36415; 70450; 70486; 71045; 72125; 80053; 80307; 81001; 83605; 84484; 85025; 85610; 85730; 86140; 87040; 93005; 99284